=== PATIENT | female | born 1950 | race Caucasian/White ===

== ENCOUNTER → 2016-08-10 | Day surgery (SDC) | payer MEDICARE, MEDICAID ==
[~2016-08-10] VITALS: Ht 165.1 cm; Wt 65.4 kg
[~2016-08-10] MED LIST: BENEFIBER1 EAC1 PO; CITRACAL+D(315M1 TAB PO; COMBIVENT RESPIM4 GM INH; EPIPEN0.3 MG IM; FLORASTOR250 MG PO; K-TAB ER20 MEQ PO; LIPITOR40 MG PO; LISINOPRIL-HCT1 EAC1 PO; NORVASC5 MG PO; OMEPRAZOLE40 MG PO; PRILOSEC20 MG PO; PROTONIX40 MG PO; PROVENTIL OR V6.7 GM INH; PROVENTIL2 MG PO; REGLAN10 MG PO; STRATTERA40 MG PO; TYLENOL PM EX-1 EACH PO; TYLENOL325 MG PO; VITAMIN D35000 UNI1 PO
== END ==
LOC: GPOC 08-06 10:00
PROC: 0DB98ZZ Excision of Duodenum, Via Natural or Artificial Opening Endoscopic (ICD-10-PCS; principal; 2016-08-10)
PROC: 0DB68ZZ Excision of Stomach, Via Natural or Artificial Opening Endoscopic (ICD-10-PCS; 2016-08-10)
DX: R14.0 Abdominal distension (gaseous) (principal); R10.9 Unspecified abdominal pain; Z87.19 Personal history of other diseases of the digestive system; Z79.899 Other long term (current) drug therapy
CPT/HCPCS: J2001; J7030

== ENCOUNTER → 2016-08-31 | Outpatient (CLI) | payer MEDICARE, MEDICAID | END | disposition disaster alternative care site (69) | LOC: GRAD 13:04 | DX: R14.0 Abdominal distension (gaseous) (principal); N20.0 Calculus of kidney; N28.1 Cyst of kidney, acquired; K76.0 Fatty (change of) liver, not elsewhere classified; N28.89 Other specified disorders of kidney and ureter; Z90.49 Acquired absence of other specified parts of digestive tract | CPT/HCPCS: Q9967 ==

== ENCOUNTER → 2016-09-23 | Outpatient (CLI) | payer MEDICARE, MEDICAID | END | disposition disaster alternative care site (69) | LOC: GRAD 08:39 | DX: K31.89 Other diseases of stomach and duodenum (principal); K22.4 Dyskinesia of esophagus ==

== ENCOUNTER 2016-12-02 11:50 | Inpatient (IN) | payer MEDICARE, MEDICAID ==
[~2016-12-02] VITALS: Ht 165.1 cm; Wt 66.8 kg
--- NOTE | ~2016-12-02 | DS ---
PATIENT'S NAME: JENIFFER WOODY [facility] AGE: 66 Y [address] ROOM: [id number] [place], [place] [address] LOCATION: GPCU ADMIT DATE: 12/02/2016 Discharge Summary DISCHARGE DATE: 12/05/2016 FAMILY PHYSICIAN: Physician, Unknown ATTENDING PHYSICIAN: Mor Blanton PRIMARY DIAGNOSES: 1. Dysphagia. 2. Schatzki ring. 3. Chronic diarrhea. 4. Gastroesophageal reflux disease. 5. Hypokalemia. PROCEDURES: Done for the patient includes EGD and dilatation of the Schatzki ring. LABORATORY DATA: On admission, WBC on admission was 6.8, stable throughout hospital stay, prior to discharge was 6.7; H and H on admission was 14.1/38.2, prior to discharge was 13.6/37.1; and platelets were stable throughout the hospital stay. Potassium on admission was 3.0, was repeated, prior to discharge was 3.8; bicarb was stable throughout the hospital stay; sodium on admission was 145, prior to discharge was 142; and creatinine was stable at 0.6 throughout the hospital stay. Liver function tests, stable. INR was 0.98. Procalcitonin was less than 0.05. MICROBIOLOGY: Stool for wbc cells not observed, occult blood was positive. Stool for ova and parasite was negative. Stool for C. difficile was negative. RADIOLOGY: CT of the abdomen and pelvis: Fatty liver without focal lesions; surgically absent gallbladder; mild prominence of the distal common duct, is normal for the postcholecystectomy state in a patient this age; nonspecific fluid filling the entire bowel without obstruction or significant distention; gastroenteritis; questionable celiac disease. HOSPITAL COURSE: For history of present illness, please take a look at the H and P which was done by Dr. Blanton. The patient was admitted to Progressive Care Unit, had a GI consult for further dysphagia. Following evaluation by GI, the patient next day was taken in for an EGD, during which she had a dilatation of the Schatzki ring to about 20 mm. Procedure was well tolerated by the patient without any intraoperative or postoperative complication. First day postop, the patient was started on clear liquid diet which was advanced to regular diet which was well tolerated by the patient without nausea or vomiting; however, she did complain of some increased abdominal tightness following her eating and this was relieved with Reglan. Second day post EGD, the patient tolerated her regular diet well, reported that her PATIENT'S NAME: JENIFFER WOODY [facility] AGE: 66 Y [address] ROOM: [id number] [place], [place] [address] LOCATION: GPCU ADMIT DATE: 12/02/2016 Discharge Summary DISCHARGE DATE: 12/05/2016 FAMILY PHYSICIAN: Physician, Unknown ATTENDING PHYSICIAN: Mor Blanton abdominal tightness got better with the use of Reglan. She reports that using the Reglan prior to eating helped with her symptoms. So on the day of discharge, her vital signs were stable and the patient was discharged home. MEDICATIONS ON DISCHARGE: 1. Norvasc 5 mg p.o. daily. 2. Combination of lisinopril and HCTZ 20/12.5 mg one tablet p.o. daily. 3. Lipitor 40 mg p.o. q.h.s. 4. Omeprazole 40 mg p.o. q.h.s. 5. Potassium chloride 20 mEq p.o. twice daily. 6. Albuterol. 7. DuoNeb. 8. EpiPen. 9. Reglan 10 mg q.8 hours p.o. p.r.n., new medication. MD MIGUEL FRANCIS/reshma /[id number] d: 12/05/16 1846 t: 12/11/16 1428, DISCHARGE SUMMARY
--- NOTE | ~2016-12-02 | HP ---
PATIENT'S NAME: JENIFFER WOODY [facility] AGE: 66 Y [address] ROOM: [id number] [place], [place] [address] LOCATION: GPCU ADMIT DATE: 12/02/2016 History & Physical DISCHARGE DATE: FAMILY PHYSICIAN: PHYSICIAN, UNKNOWN ATTENDING PHYSICIAN: MARIBEL RODRÍGUEZ DATE OF SERVICE: CHIEF COMPLAINT: Nausea and vomiting and diffuse abdominal pain associated with worsening abdominal distention and intermittent dysphagia. HISTORY OF PRESENT ILLNESS: This is a 66-year-old female, who says that for several months, she has been having this diffuse abdominal pain associated with nausea, vomiting, and also intermittent dysphagia, at the same time with worsening abdominal distention. She chronically has diarrhea for many years. Because of these problems, the patient was hospitalized in [facility] from November 26, 2016 to November 30, 2016. During her hospitalization over there, the patient had a CT scan of the abdomen and pelvis with IV contrast, which was done on November 26, 2016, and showed fluid-filled colon consistent with a diarrheal illness. No findings of obstruction or bowel inflammation. Diffuse fatty infiltration of the liver. The patient was initially treated with NG tube and n.p.o., and IV fluids and pain control and nausea control as if she was having small bowel obstruction. The patient had repeat imaging, which was abdominal x-ray on November 27, 2016. It showed colonic ileus. A repeat abdominal x-ray on the following day November 28, 2016, showed nonobstructive bowel gas pattern, contrast within the colon. Subsequently, the patient's NG tube was removed. However, the patient told me that she feels a little bit better, but overall her symptoms were still there. Either way, the patient was discharged from the hospital over there on November 30, 2016, and the patient was scheduled to follow up with her medical provider in [place]. The patient does not remember whom did she see in [place] today. Today during the office visit with the provider in [place], the patient kept complaining symptom of nausea, vomiting, and intermittent dysphagia associated with diffuse abdominal pain and abdominal distention. Therefore, the patient was sent over here for further care. Upon reviewing her medical records, the patient has a history of Schatzki's ring, requiring dilatation in the past. According to her records when I reviewed, on August 05, 2015, the patient had an upper endoscopy, which showed 18 mm Schatzki's ring in the setting of sliding hiatal hernia and was dilated with endoscopy from 18 to 20 mm. The patient had another endoscopy that was done on July 03, 2015. It showed normal examination of the esophagus except for 2 cm sliding hiatal hernia and a wide-open Schatzki's PATIENT'S NAME: JENIFFER WOODY [facility] AGE: 66 Y [address] ROOM: [address] [address] [facility] AD[facility] DATE: 12/02/2016 History & Physical DISCHARGE DATE: FAMILY PHYSICIAN: PHYSICIAN, UNKNOWN ATTENDING PHYSICIAN: MARIBEL RODRÍGUEZ. No erosive esophagitis. The patient also had a colonoscopy that was done on July 03, 2015. It showed completely normal cecum and terminal ilium. She does have evidence of sigmoid colon, which is tortuous and some diverticulosis. She was also admitted here in the hospital that was from June 03, 2016 and discharged on June 05, 2016. At that time, she was here for the same problem, and she was found to have peptic ulcer disease with EGD showing hiatal hernia and ulcers in the cardia, fundus, and greater curvature of stomach body. The patient was treated conservatively with a PPI, and the patient was discharged with resolution of her symptoms. REVIEW OF SYSTEMS: As mentioned in the history of present illness. All other systems were reviewed and were negative except for those mentioned in the history of present illness. PAST MEDICAL HISTORY: 1. Hypertension. 2. Gastroesophageal reflux disease. 3. Hiatal hernia. 4. Peptic ulcer disease. 5. Hyperlipidemia. 6. Schatzki's ring, requiring dilatation in the past. 7. Fatty liver. ALLERGIES: SULFA, WHICH CAUSES GI UPSET. HOME MEDICATIONS: 1. Albuterol 2 puffs inhalation every 4 hours p.r.n. for shortness of breath or wheezing. 2. Amlodipine 5 mg p.o. daily. 3. Atorvastatin 40 mg p.o. daily. 4. Lisinopril and hydrochlorothiazide combination 20/12.5 mg 1 tablet p.o. daily. 5. Omeprazole 40 mg p.o. daily. 6. Potassium chloride 20 mEq p.o. b.i.d. SOCIAL HISTORY: The patient denies any alcohol or illegal drug or cigarette use. FAMILY HISTORY: Father from myocardial infarction at age 70s and mother has hypertension. PATIENT'S NAME: JENIFFER WOODY [facility] AGE: 66 Y [address] ROOM: [id number] [place], [place] [address] [facility] AD[facility] DATE: 12/02/2016 History & Physical DISCHARGE DATE: FAMILY PHYSICIAN: PHYSICIAN, UNKNOWN ATTENDING PHYSICIAN: MARIBEL RODRÍGUEZ PAST SURGICAL HISTORY: 1. Schatzki's ring, requiring esophageal dilatation in the past. 2. Status post left adrenalectomy on the left side for left adrenal mass. 3. Status post cholecystectomy. 4. Status post total abdominal hysterectomy and bilateral salpingo- oophorectomy. 5. Appendectomy. 6. The patient says that many many years ago roughly 20 years ago, she states she had adhesiolysis in the abdomen that was done here, details are not clear. PHYSICAL EXAMINATION: VITAL SIGNS: At the time of my dictation, temperature 98, blood pressure 130/75, heart rate 80, respiration 13, saturation 99% on room air. GENERAL APPEARANCE: Alert and oriented x3, in no acute distress. HEENT: Pupils are equally round and reactive to light. Extraocular muscles intact. Anicteric sclerae. Nasal turbinates are normal bilaterally. Moist oral mucosa. NECK: No JVD. CARDIOVASCULAR: Regular rate and rhythm. Normal S1, S2. No murmur, no rubs, no gallops. RESPIRATORY: Clear. No rales, no rhonchi, no wheezing, no crackles. ABDOMEN: Soft, no abdominal rigidity, distended, bowel sounds very decreased, no mass, no rebound tenderness. EXTREMITIES: No edema in upper or lower extremities. SKIN: No ulcer, no rash, no cyanosis. MUSCULOSKELETAL: No joint pain. No muscle pain. Range of motion intact. NEUROLOGICAL: Grossly nonfocal. LABORATORY DATA: Currently, labs are pending. IMAGING DATA: Currently, I have ordered a CT of abdomen and pelvis with IV contrast and it will be done shortly. Other imaging that was done in the other hospital is already dictated in the history of present illness. ASSESSMENT AND PLAN: 1. Regarding her nausea and vomiting and diffuse abdominal pain and distention with intermittent dysphagia. Differential could be wide. Could be peptic ulcer disease versus small bowel obstruction versus ileus versus Schatzki's ring. I will get a CT abdomen and pelvis with IV PATIENT'S NAME: JENIFFER WOODY [facility] AGE: 66 Y [address] ROOM: [id number] [place], [place] [address] [facility] ADMIT DATE: 12/02/2016 History & Physical DISCHARGE DATE: FAMILY PHYSICIAN: PHYSICIAN, UNKNOWN ATTENDING PHYSICIAN: MARIBEL RODRÍGUEZ to evaluate, and I will also consult Gastroenterology to see if the upper endoscopy would be required to look for Schatzki's ring. Pain control with IV morphine p.r.n. IV Zofran p.r.n. for nausea. IV fluids for hydration. N.p.o. for now. Further plan will depend on the finding on the CT and abdomen pelvis and per GI consultation. 2. Regarding her hypertension, the patient is n.p.o. I will do IV hydralazine p.r.n. and also IV labetalol p.r.n. for blood pressure control. 3. Regarding her gastroesophageal reflux disease. Continue with IV Protonix 40 mg b.i.d. in the setting of history of peptic ulcer disease. 4. Regarding her hiatal hernia. Already on PPI from IV Protonix as I mentioned before. 5. Regarding her deep venous thrombosis prophylaxis. For now, I will do compression devices in case the patient will require some invasive procedure. 6. Increase ambulation. 7. Code status: She is a full code. Time spent in care on the day of admission 45 minutes where 20 minutes were spent on chart review, interviewing, and physical examination. The remainder of the time was spent on counseling, including going over the plan of care with the patient and also addressing her questions and concerns to her satisfaction. Further plan will depend on clinical course. MARIBEL RODRÍGUEZ MD CC/reshma /[id number] D: T: HISTORY & PHYSICAL
--- NOTE | ~2016-12-02 | CON ---
PATIENT'S NAME: JENIFFER WOODY [facility] AGE: 66 Y [address] ROOM: [id number] [place], [place] [address] LOCATION: GPCU ADMIT DATE: 12/02/2016 Consultation DISCHARGE DATE: FAMILY PHYSICIAN: PHYSICIAN, UNKNOWN ATTENDING PHYSICIAN: MARIBEL RORDÍGUEZ DATE OF CONSULTATION: 12/02/2016 REFERRING PHYSICIAN: COBY SOMERS MD REFERRING PROVIDER: Dr. Rodríguez. REASON FOR CONSULTATION: Nausea, vomiting, dysphagia, and diffuse abdominal pain with worsening abdominal distention. HISTORY OF PRESENT ILLNESS: This is a 66-year-old female, who is known to our Gastroenterology Services due to chronic abdominal pain. The patient states over the past few months, her diffuse abdominal pain associated with nausea, vomiting, abdominal distention, and intermittent dysphagia has worsened. She chronically has diarrhea for a number of years. In review of the medical record, last upper endoscopy was completed on 06/04/2016. At that time, the patient was found to have a normal study with a hiatal hernia. There were small ulcers noted in the cardia and the fundus on the greater curvature of the stomach body. Biopsies were obtained that were negative for celiac and Helicobacter. The patient was also recently admitted in [facility] from November 26 to November 30, 2016. At that time, the patient had a CT scan that showed fluid-filled colon consistent with diarrheal illness and findings of obstruction or bowel inflammation. Diffuse fatty infiltration was also seen. The patient was initially treated with NG tube and n.p.o. and IV fluids with pain control. The patient had reimaging including an abdominal x-ray that showed colonic ileus. A repeat abdominal x-ray on the following day, November 28, 2016, showed nonobstructive bowel gas pattern, contrast within the colon. Subsequently, the patient's NG tube was removed at that time. The patient states post that she felt "a little better. She was discharged from the hospital on November 30 and scheduled for followup with a medical provider in [place]. The patient presented to primary care's office. She continued complaining of nausea, vomiting, intermittent dysphagia as well as increasing abdominal pain and abdominal distention. The patient has had a history of a Schatzki's ring that has been dilated. She at this point states that she has intermittent dysphagia, specifically with solid foods. She denies any odynophagia. She also has a history of peptic ulcer disease that was found during the most recent scope in May 2016. The patient currently denies any chest pain, chest pressure, shortness of breath, fever, chills, or night sweats. She does PATIENT'S NAME: JENIFFER WOODY [facility] AGE: 66 Y [address] ROOM: [place] [address] LOCATION: GPCU ADMIT DATE: 12/02/2016 Consultation DISCHARGE DATE: FAMILY PHYSICIAN: PHYSICIAN, UNKNOWN ATTENDING PHYSICIAN: MARIBEL RODRÍGUEZ state that her weight has been stable. PAST MEDICAL HISTORY: Hypertension, gastroesophageal reflux disease, hiatal hernia, peptic ulcer disease, hyperlipidemia, history of Schatzki's ring requiring dilation, and fatty liver. PAST SURGICAL HISTORY: Schatzki's ring requiring esophageal dilation, status post left adrenalectomy on the left side for adrenal mass, post cholecystectomy, post total abdominal hysterectomy and bilateral salpingo-oophorectomy, and appendectomy. She also states that roughly 20 years ago, she had adhesions in the abdomen, though details are unclear at this time. SOCIAL HISTORY: The patient denies any alcohol, illicit drug use or tobacco use. FAMILY HISTORY: The patient's father from myocardial infarction in the 70s. The patient's mother has hypertension. ALLERGIES: SULFAMETHOXAZOLE, BANANA, GRAPE, PORK DERIVED, SUNFLOWER SEEDS, AND ORANGE. CURRENT MEDICATIONS: Please refer to the medication administration record. REVIEW OF SYSTEMS: An all-point review of systems was completed. All were negative except for those identified in the history of present illness. PHYSICAL EXAMINATION: GENERAL: A very pleasant 66-year-old female, lying in bed, who appears to be in no acute distress. VITAL SIGNS: Temperature 97.5, pulse 64, respirations of 16, blood pressure 157/71, and oxygen saturations 99% on room air. SKIN: [place], warm, dry. No jaundice. HEENT: Head is normocephalic and atraumatic. Pupils are equal, round, and reactive to light. Sclerae are clear, nonicteric. Oral mucosa is pink and moist. No thyromegaly. NECK: Soft and supple. CARDIOVASCULAR: Regular. Normal S1, S2. RESPIRATORY: Respirations even and nonlabored. Lungs are clear to auscultation. ABDOMEN: Soft, round, mildly distended. Bowel sounds are positive x4 PATIENT'S NAME: JENIFFER WOODY [facility] AGE: 66 Y [address] ROOM: [id number] [place], [place] [address] LOCATION: GPCU ADMIT DATE: 12/02/2016 Consultation DISCHARGE DATE: FAMILY PHYSICIAN: PHYSICIAN, UNKNOWN ATTENDING PHYSICIAN: MARIBEL RODRÍGUEZ. MUSCULOSKELETAL: No muscle weakness or atrophy. EXTREMITIES: No clubbing, cyanosis, or edema. NEUROLOGIC: Grossly nonfocal. LABS AND DIAGNOSTICS: Laboratory obtained at [facility] did show white blood cell count of 6.8, hemoglobin of 14.1, hematocrit of 38.2, and platelets of 289. Chemistry panel includes a glucose of 87, BUN of 7, creatinine 0.6, sodium 145, potassium of 3.0, chloride of 108, CO2 of 30, albumin of 3.0, AST of 41, ALT of 69, alkaline phosphatase of 101, and total bilirubin 0.7. ASSESSMENT AND PLAN: Again, this is a very pleasant 66-year-old female, who was admitted to [facility] for abdominal pain, intermittent dysphagia, and abdominal distention. Intermittent dysphagia: At this time, the patient does have a history of peptic ulcer disease as well as Schatzki's ring, status post dilation. We will go forth with an upper endoscopy for further evaluation for possible dilatation of the ring if warranted at that time. The patient most likely will also possibly have biopsies obtained in lieu of the patient's abdominal pain and bloating symptoms. This was discussed with Dr. Rodríguez as further recommendations to be given status post upper endoscopy. Thank you for this consult. ELENO JONES APRN FOR MD MATTHEW STEWART/modl /[id number] d: 12/03/16 0909 t: 12/08/16 1310, CONSULTATION REPORT
[~2016-12-02 11:50] MED LIST changes: -REGLAN10 MG PO
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
[2016-12-02 14:01] LABS: BASOPHIL % 0.6 %; EOSINOPHIL # 0.1 K/uL (0.0-0.5); EOSINOPHIL % 1.2 %; HEMATOCRIT 38.2 % (33.0-46.0); HEMOGLOBIN 14.1 g/dL (10.0-15.0); IMMATURE GRANULOCYTE % 0.6 %; LYMPHOCYTE # 1.7 K/uL (0.8-4.0); LYMPHOCYTE % 25.4 %; MCH 32.7 pg (27.0-34.0); MCHC 36.9 gm/dL (32.0-36.5); MCV 88.6 fl (83.0-98.0); MONOCYTE # 0.7 K/uL (0.0-1.0); MONOCYTE % 10.6 %; MPV 9.6 fl (9.4-12.4); NEUTROPHIL # (ANC) 4.2 K/uL (1.8-7.8); NEUTROPHIL % 61.6 %; NRBC % 0 /100WBC (0-0.00); PLATELET COUNT 289 K/uL (150-450); RBC 4.31 M/uL (3.50-5.50); RDW-CV 12.7 % (11.9-14.6); WBC 6.8 K/uL (4.0-11.0)
[2016-12-02 14:07] LABS: BILIRUBIN URINE NEGATIVE (NEGATIVE); BLOOD URINE NEGATIVE /UL (NEGATIVE); COLOR URINE YELLOW (YELLOW); GLUCOSE URINE NEGATIVE (NEGATIVE); KETONE URINE NEGATIVE (NEGATIVE); LEUKOCYTES URINE NEGATIVE /UL (NEGATIVE); NITRITE URINE NEGATIVE (NEGATIVE); PH URINE 6.5 (4.0-8.0); PROTEIN URINE NEGATIVE (NEGATIVE); TURBIDITY URINE CLEAR (CLEAR); UROBILINOGEN URINE NORMAL (NORMAL)
[2016-12-02 14:12] LABS: INR - (THERAPEUTIC) 0.98 (0.92-1.07); PROTIME 10.3 SECONDS (9.8-11.4); PTT 25 SECONDS (25-32)
[2016-12-02 14:20] LABS: ALK PHOS 101 IU/L (33-138); ALT 69 IU/L (12-78); AST 41 IU/L (10-40); BLOOD UREA NITROGEN 7 mg/dL (6-24); CALCIUM 8.6 mg/dL (8.5-10.5); CHLORIDE 108 mMol/L (96-110); CO2 30 mMol/L (22-32); CREATININE 0.6 mg/dL (0.5-1.1); ESTIMATED GFR (MDRD EQUATION) > 60; SODIUM 145 mMol/L (135-145); TOTAL BILIRUBIN 0.7 mg/dL (0.0-1.5); TOTAL PROTEIN 6.4 g/dL (6.0-8.4)
--- NOTE | 2016-12-02 17:16 | NUR ---
PATIENT ADMITTED TODAY WITH POSSIBLE GI BLEED AND HYPOKALEMIA. PATIENT IS CURRENTLY RECEIVING KCL 40MEQ.
[2016-12-03 03:43] LABS: HEMATOCRIT 35.8 % (33.0-46.0); HEMOGLOBIN 12.6 g/dL (10.0-15.0); MCH 32.1 pg (27.0-34.0); MCHC 35.2 gm/dL (32.0-36.5); MCV 91.3 fl (83.0-98.0); MPV 9.4 fl (9.4-12.4); RBC 3.92 M/uL (3.50-5.50); RDW-CV 13.2 % (11.9-14.6); WBC 5.2 K/uL (4.0-11.0)
[2016-12-03 04:02] LABS: ANION GAP 11.3 (10.0-19.0); BLOOD UREA NITROGEN 7 mg/dL (6-24); CALCIUM 8.4 mg/dL (8.5-10.5); CHLORIDE 112 mMol/L (96-110); CO2 27 mMol/L (22-32); CREATININE 0.6 mg/dL (0.5-1.1); ESTIMATED GFR (MDRD EQUATION) > 60; POTASSIUM 4.3 mMol/L (3.7-5.1); SODIUM 146 mMol/L (135-145)
--- NOTE | 2016-12-03 05:27 | NUR ---
A/O. HR 50-60s. SBP 110-130s. AFEBRILE. ROOM AIR. SBA UP TO BATHROOM. PO AND IV KCL REPLACED. NS RUNNING AT 60ML/HR. MORPHINEx3 FOR ABD DISCOMFORT. NPO SINCE MN FOR EGD THIS AM.
--- NOTE | 2016-12-03 13:10 | NUR ---
1150 Stopped by to see Vanessa and talk about dismissal plans with her. She was not in her room. RN reports that she is down for her EGD right now, but from what she can see, Vanessa will most likely be able to return back home when she is ready for dismissal. No CM concerns from RN at this time. Will attempt to stop back by later and see Vanessa. Possible dismissal to home tomorrow or Tuesday at this point.
--- NOTE | 2016-12-03 17:12 | NUR ---
Significant Event: VSS ON RA. MS 2MG IVP GIVEN PRIOR TO ENDO FOR ABD PAIN WITH COMPLETE RELIEF. NO C/O PAIN SINCE RETURN FROM ENDOSCOPY. TOLERATING REGULAR DIET. SBA TO BATHROOM WITH SMALL, GREEN BM. IV TO LEFT FA SL'D. HOME MEDS ADDRESSED AND INITIATED WELL LOVENOX. Follow up: LABS IN AM. HOME TOMORROW? CONT TO MONITOR PER PLAN OF CARE.
[2016-12-04 05:19] LABS: HEMATOCRIT 37.1 % (33.0-46.0); HEMOGLOBIN 13.6 g/dL (10.0-15.0); MCH 33.2 pg (27.0-34.0); MCHC 36.7 gm/dL (32.0-36.5); MCV 90.5 fl (83.0-98.0); RBC 4.1 M/uL (3.50-5.50); RDW-CV 12.9 % (11.9-14.6); WBC 6.7 K/uL (4.0-11.0)
[2016-12-04 05:26] LABS: ANION GAP 10.5 (10.0-19.0); CALCIUM 8.4 mg/dL (8.5-10.5); CHLORIDE 108 mMol/L (96-110); CO2 28 mMol/L (22-32); CREATININE 0.6 mg/dL (0.5-1.1); ESTIMATED GFR (MDRD EQUATION) > 60; POTASSIUM 3.5 mMol/L (3.7-5.1); SODIUM 143 mMol/L (135-145)
[2016-12-04 05:31] LABS: BLOOD UREA NITROGEN 11 mg/dL (6-24)
--- NOTE | 2016-12-04 17:37 | NUR ---
Significant Event: VSS ON RA. TOLERATING REGULAR DIET EXCEPT ABD IS DISTENDED HAS HAD BM X4 TODAY. NEED COLLECTION OF STOOL FOR: CDIFF, O&P, OCCULT BLOOD AND WBC. IF >5 BM'S THIS EVENING START NS AT 50ML/HR. PIV TO L) INNER FA SL'D. REGLAN IV GIVEN X2 LAST AT 1730 TO PREVENT ABD DISCOMFORT POST-EATING. VOIDS ADEQ AMOUNT. PT/OT AMBULATING SBA IN [place]. 40MEQ KCL PO GIVEN X1 FOR K+ 3.5 THIS MORNING. Follow up: POSSIBLY HOME TOMORROW. CONT TO MONITOR BOWEL MOVEMENTS AND PER PLAN OF CARE.
--- NOTE | 2016-12-05 04:19 | NUR ---
Significant Event: A/0X3. RESTED IN BED ALL OF SHIFT. TURNS SELF. UP INDEPENDENTLY TO BR. AFEBRILE. VSS ON RA. DENIES PAIN. IV TO L) FA SL. VOIDED 1300 MLS OF URINE. PATIENT ONLY HAD BM X1 THIS SHIFT. D/C MEDS PRINTED ON THE CHART. Follow up: CONTINUE WITH PLAN OF CARE. POSSIBLY D/C HOME TODAY.
[2016-12-05 04:47] LABS: ANION GAP 9.8 (10.0-19.0); BLOOD UREA NITROGEN 10 mg/dL (6-24); CALCIUM 8.6 mg/dL (8.5-10.5); CHLORIDE 108 mMol/L (96-110); CO2 28 mMol/L (22-32); CREATININE 0.6 mg/dL (0.5-1.1); ESTIMATED GFR (MDRD EQUATION) > 60; MAGNESIUM 1.9 mg/dL (1.8-2.6); POTASSIUM 3.8 mMol/L (3.7-5.1); SODIUM 142 mMol/L (135-145)
[2016-12-05] MEDS ORDERED: REGLAN10 MG PO (09:15)
--- NOTE | 2016-12-05 14:32 | NUR ---
PATIENT GIVEN WRITTEN DISMISSAL INSTRUCTIONS INCLUDING NEW HOME MEDICATION LIST WITH INFORMATION ON NEW MEDS, PRESCRIPTIONS, FOLLOW-UP APPIONTMENT TIME, DIET AND ACTIVITY RESTRICTIONS. PATIENT STATES UNDERSTANDING OF DISMISSAL INSTRUCTIONS DISCUSSED WITH RN. TELEMETRY DC'D AND PATIENT TOOK INDEPENDENT SHOWER, DRESSED IN OWN CLOTHING. TAKEN TO FRONT OF [facility] ENTRANCE VIA WHEELCHAIR ACCOMPANIED BY RN AND BELONGINGS WITH RIDE AVAILABLE AT ENTRANCE AT 1330.
== END 2016-12-05 13:30 | disposition disaster alternative care site (69) | DRG 392 ==
LOC: GPCU 11:50 → EDSTATUS 13:00 → GPCU 12-05 13:30
PROVIDERS: Hospitalist; ADMIT Internal Medicine
PROC: 0D758ZZ Dilation of Esophagus, Via Natural or Artificial Opening Endoscopic (ICD-10-PCS; principal; 2016-12-03)
DX: K29.00 Acute gastritis without bleeding (principal); K22.2 Esophageal obstruction; I10 Essential (primary) hypertension; R13.10 Dysphagia, unspecified; K31.84 Gastroparesis; K21.9 Gastro-esophageal reflux disease without esophagitis; K52.9 Noninfective gastroenteritis and colitis, unspecified; E87.6 Hypokalemia; K44.9 Diaphragmatic hernia without obstruction or gangrene; K57.90 Diverticulosis of intestine, part unspecified, without perforation or abscess without bleeding; Z87.11 Personal history of peptic ulcer disease; Z88.2 Allergy status to sulfonamides; Z91.02 Food additives allergy status; Z91.018 Allergy to other foods
CPT/HCPCS: C1726; C9113; J0131; J1650; J2270; J2765; J3480; J7030; J7050; Q9967